=== PATIENT | male | born 1950 | race Caucasian/White ===

== ENCOUNTER → 2020-12-05 | Outpatient (CLI) | payer MEDICARE, BC ==
[~2020-12-05] MED LIST: HYDR-3240 PO; MELA1TAB22 PO; MULT-658 PO; [UNRECOGNIZED DRUG - OTHER] PO; gabapentin PO
== END | disposition home or self-care (01) ==
LOC: STAR 10:35
PROVIDERS: ATTEND Urology
DX: Z01.812 Encounter for preprocedural laboratory examination (principal); Z20.822 Contact with and (suspected) exposure to COVID-19; C61 Malignant neoplasm of prostate
CPT/HCPCS: 87635; 93005

== ENCOUNTER 2020-12-19 11:54 | Outpatient (CLI) | payer MEDICARE, BC ==
[~2020-12-19 11:54] MED LIST changes: +HYDR-1067 PO; -HYDR-3240 PO; +SAW PALMETTO PO
== END 2020-12-19 23:59 | disposition home or self-care (01) ==
LOC: RAD 11:54
PROVIDERS: ATTEND Urology
DX: C61 Malignant neoplasm of prostate (principal)
CPT/HCPCS: 51600; 74430; Q9958